=== PATIENT | female | born 1935 | race Caucasian/White ===

== ENCOUNTER 2018-12-25 13:22 | Inpatient (IN) ==
[2018-12-25 13:50] LABS: Basophils % 0.2 % (0.1-2.0); Eosinophils # 0.1 K/mm3 (0.0-0.4); Eosinophils % 0.8 % (0.1-12.0); Hematocrit 40.9 % (37.0-47.0); Hemoglobin 11.9 g/dL (12.2-16.2); Lymphocytes # 0.9 K/mm3 (0.7-4.5); Lymphocytes % 9.6 % (10-50); Mean Corpuscular Volume 94.6 fl (81-99); Mean Platelet Volume 8.1 fl (7.4-10.4); Monocytes # 0.9 K/mm3 (0.1-1.0); Monocytes % 10.2 % (1.7-9.3); Neutrophils % 79.2 % (37.0-80.0); Platelet Count 319 K/mm3 (142-424); Red Blood Count 4.33 M/mm3 (4.20-5.40); Red Cell Distribution Width 16.2 % (11.5-17.5); White Blood Count 8.9 K/mm3 (4.8-10.8)
--- NOTE | 2018-12-25 13:58 | Emergency Department Note ---
ED Disposition Clinical Impression: UTI (urinary tract infection) Qualifiers: Urinary tract infection type: site unspecified Hematuria presence: without hematuria Qualified Code(s): N39.0 - Urinary tract infection, site not specified Altered mental status Qualifiers: Altered mental status type: unspecified Qualified Code(s): R41.82 - Altered mental status, unspecified Atrial fibrillation Qualifiers: Atrial fibrillation type: paroxysmal Qualified Code(s): I48.0 - Paroxysmal atrial fibrillation Disposition: Admitted as Observation Condition on Discharge: Fair Referrals: Provider,Referral, [Primary Care Provider] - - Critical Care Critical Care Time: No Attestation: On 12/25/18, the high probability of a clinically significant, sudden or life threatening deterioration of the following system(s) required my full and direct attention, intervention and personal management. The time I documented below is in addition to time spent performing reported procedures but includes the following listed in this critical care notation. Medical Decision Making - Gustavo Inquiry Pt receiving controlled substance: No Vital Signs: 12/25/18 13:23 12/25/18 14:53 12/25/18 16:00 Temperature 98.3 F Temperature Source Oral Pulse Rate [Left Radial] 86 126 H 115 H Respiratory Rate 22 20 Blood Pressure [Right Arm] 91/56 L 98/70 L 112/54 L Blood Pressure Mean [Right Arm] 67 79 73 Blood Pressure Source [Right Arm] Automatic Cuff Automatic Cuff Automatic Cuff Blood Pressure Position [Right Arm] Supine Supine Supine 02 Sat by Pulse Oximetry 96 98 99 Oxygen Delivery Method Nasal Cannula Room Air Nasal Cannula Oxygen Flow Rate (LPM) 2 2 12/25/18 17:00 Temperature Temperature Source Pulse Rate [Left Radial] 122 H Respiratory Rate 24 Blood Pressure [Right Arm] 104/71 L Blood Pressure Mean [Right Arm] 82 Blood Pressure Source [Right Arm] Automatic Cuff Blood Pressure Position [Right Arm] Supine 02 Sat by Pulse Oximetry 94 L Oxygen Delivery Method Nasal Cannula Oxygen Flow Rate (LPM) 2 - Lab Data Lab Results 12/25/18 13:35: WBC 8.9, RBC 4.33, Hgb 11.9 L, Hct 40.9, MCV 94.6, MCH 27.5, MCHC 29.0 L, RDW 16.2, Plt Count 319, MPV 8.1, Neut % (Auto) 79.2, Lymph % (Auto) 9.6 L, [place] % (Auto) 10.2 H, Eos % (Auto) 0.8, Baso % (Auto) 0.2, Neut # (Auto) 7.0, Lymph # (Auto) 0.9, [place] # (Auto) 0.9, Eos # (Auto) 0.1, Baso # (Auto) 0.0 12/25/18 13:35: Sodium 140, Potassium 4.3, Chloride 105, Carbon Dioxide 30, Anion Gap 9.3, BUN 22 H, Creatinine 0.95, Estimated Creat Clear 45, Estimated GFR 56 L, Est GFR ( Amer) 68, Glucose 159 H, Calcium 8.2 L, Troponin I 0.04 12/25/18 13:35: Digoxin 1.03, Total Valproic Acid 23.6 L 12/25/18 13:35: B-Natriuretic Peptide 364 H 12/25/18 13:35: TSH 0.99, Free T4 Index 3.0 L, Thyroxine (T4) 7.7, T3 Uptake 39 12/25/18 14:10: Lactate 1.5 12/25/18 16:30: Urine Color Yellow, Urine Appearance Clear, Urine pH 6.0, Ur Specific [place] 1.010, Urine Protein Negative, Urine Glucose (UA) Negative, Urine Ketones Negative, Urine Blood Negative, Urine Nitrate Positive, Urine Bilirubin Negative, Urine Urobilinogen 0.2, Ur Leukocyte Esterase 2+ A, Urine WBC 50-100, Ur Squamous Epith Cells 3-5, Urine Bacteria 4+ Result diagrams: 12/25/18 13:35 12/25/18 13:35 Orders (Tests/Meds): ED MEDICATIONS Generic Name Dose Route Start Last Admin Trade Name Freq PRN Reason Stop Dose Admin Ceftriaxone Sodium 1 gm/ 50 mls @ 100 mls/hr 12/25/18 18:00 12/25/18 18:04 Sodium Chloride IV 01/08/19 17:59 100 mls/hr Q24H LATHA Administration Protocol Discontinued Medications Generic Name Dose Route Start Last Admin Trade Name Freq PRN Reason Stop Dose Admin Sodium Chloride 1,000 ml 12/25/18 14:04 12/25/18 14:35 Sod Chlor 0.9% 1000ml Bag IV 12/25/18 14:05 1,000 ml BOLUS ONE Administration ORDERS Category Date Time Status Blood Culture Stat Micro 12/25/18 14:10 Received Urine Culture Stat Micro 12/25/18 16:30 Received - Radiology Data #1 Image(s): Chest Image Reviewed: Yes I reviewed the patient's radiology image cardiomegaly, L pleural effusion - ECG Data Tracing #1 EKG interpreted by Anjel Cornelius MD: Rhythm: Atrial fibrillation with rapid response Rate: 115 Ectopy: none Conduction: Left bundle branch block, chronic - Physician Consults Physician Consulted: Christiano Time: 18:40 Reason -: Admission Comment/Response: Agrees to admit the patient to the hospital. We discussed the patient's clinical information, including history, exam, laboratory and radiology results and ED course. Per hospital procedure, I will write temporary bridge inpatient orders on the patient. Specific orders requested by the admitting physician: Continue Rocephin. No treatment for atrial fibrillation at this time. General Adult HPI - General Chief complaint: Weakness Stated complaint: AMS Time Seen by Provider: 12/25/18 13:57 Mode of Arrival: EMS Limitations: Physical Limitations Description of Symptoms (Recalled from ER Triage Doc. by RN): States patient has been declining for awhile now. Fell at [facility] on the and has since progressed to getting worse. PEG tube in place. Patient is nonverbal related to previous stroke. [facility] reports patient has a deep tissue area to right buttock and left heel. - History of Present Illness HPI narrative: The patient is nonverbal, unable to provide any history on her own. History is obtained from [facility] records. The patient reportedly fell at [facility] on 12/19/2018. Included in her documents are x- ray results from 12/19/2018, negative left hip and 12/20/2018, negative bilateral hips. She has reportedly had a decline in status since then. The patient is nonverbal, reportedly due to her previous stroke. 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 - Related Data Home Medications Medication Instructions Recorded Confirmed Apixaban [Eliquis] 5 mg G-TUBE BID 04/30/17 12/25/18 Atorvastatin Calcium [Lipitor 40mg 40 mg G-TUBE HS 04/30/17 12/25/18 Tablet] Cetirizine HCl [Zyrtec] 10 mg G-TUBE DAILY 04/30/17 12/25/18 Digoxin [Digoxin 0.125mg Tablet] 125 mcg G-TUBE DAILY 04/30/17 12/25/18 Donepezil HCl [Aricept 10mg 10 mg G-TUBE HS 04/30/17 12/25/18 tablet] Nebivolol HCl [Bystolic] 10 mg G-TUBE BID 04/30/17 12/25/18 Omeprazole Magnesium [Prilosec Otc 20 mg PO HS 04/30/17 12/25/18 20mg Tab] Valproic Acid 500 mg G-TUBE BID 04/30/17 12/25/18 Aspirin [Aspirin 325mg Tab] 325 mg PO DAILY 05/01/17 12/25/18 Allergies Allergy/AdvReac Type Severity Reaction Status Date / Time No Known Allergies Allergy Verified 04/30/17 20:48 [facility] History - Hepatitis A Screen Drug use history?: No High risk sexual behaviors?: No History of sexually transmitted infection?: No Currently employed?: No Childcare worker?: No Do you have indoor plumbing?: Yes Do you have electricity?: Yes Attestation statement:: This patient has been screened for Hepatitis A risk factors. I have reviewed the patient's past medical history: Yes Medical History: Reports:: Atrial Fibrillation, Cerebrovascular Accident, Dementia, Depression, Gastroesophageal Reflux Disease(GERD), Hyperlipidemia Denies:: Cancer, Diabetes Mellitus Type 1, Diabetes Mellitus Type 2, Internal Pacemaker, MRSA Other Surgeries: No: Pacemaker Amputation: No Fractures: No - Social History Educational Level: Completed High School Smoking Status: Unknown if ever smoked Alcohol Intake: never Occupational Status: unemployed, retired, disabled Housing: [facility] - Psychiatric History Pschychiatric History:: Reports:: Depression Family Hx:: Unable to obtain ROS Obtained: Yes unobtainable due to mental status, Yes unobtainable due to mental condition Physical Exam - General General appearance: other Comment: Laying with eyes closed. When stimulated she will open her eyes and mouth open. She does not follow commands or answer any questions. She will move all 4 extremities to stimulation. She will close her mouth to stimulation and face appears symmetric. - Head Head exam: atraumatic, normocephalic - Eye Eye exam: Present: normal appearance, PERRL, EOMI - ENT ENT exam: Present: mucous membranes dry - Neck Neck exam: Present: normal inspection, trachea midline - Chest Chest inspection: Present: normal inspection, symmetric chest wall rise - Respiratory Respiratory exam: Present: normal lung sounds bilaterally. Absent: respiratory distress - Cardiovascular Cardiovascular exam: Present: tachycardia, irregular rhythm, normal heart sounds - Abdominal Exam Abdominal exam: Present: soft. Absent: distention, guarding Comment: G-tube - Extremities Exam Extremities exam: Present: normal inspection - Neurological Exam Neurological exam: Present: other (responds to painful stimuli) - Skin Skin exam: Present: warm, dry
[2018-12-25 14:07] LABS: Calcium 8.2 mg/dL (8.5-10.1)
[2018-12-25 14:37] LABS: Anion Gap 9.3 mEq/L (5-15)
[2018-12-25 15:05] LABS: Digoxin 1.03 ng/mL (0.90-2.00)
[2018-12-25 16:40] LABS: Microscopic, Urine URINE MICROSCOPIC (MICROSCOPIC)
[2018-12-25 16:54] LABS: Appearance,Urine CLEAR (Clear); Bilirubin,Urine Negative (Negative); Blood, Urine Negative (Negative); Color,Urine YELLOW (Yellow); Glucose,Urine (UA) Negative (Negative); Ketones,Urine Negative (Negative); Leukocyte Esterase,Urine 2+ (Negative); Protein,Urine Negative (Negative); Urobilinogen,Urine 0.2 EU/dl (0.2)
[2018-12-25 17:38] LABS: Bacteria,Urine 4+ /lpf; WBC,Urine 50-100 #/hpf (0-3)
[2018-12-25 18:22] LABS: Thyroid Stimulating Hormone 0.99 uIU/ml (0.358-3.740)
--- NOTE | 2018-12-26 07:46 | Pharmacy Consult Notes ---
[facility] Pharmacy VTE Monitoring - Patient Demographics Admission date: 12/26/18 Report Date: 12/26/18 Time: 07:42 Allergies/Adverse Reactions: Patient Allergies No Known Allergies Allergy (Verified 04/30/17 20:48) Height: 1.68 m Weight: 71.781 kg Patient Problems: Current Active Problems Altered mental status, unspecified (Acute) UTI (urinary tract infection) (Acute) Atrial fibrillation (Acute) - VTE Risk Labs: VTE Related Lab Results Hgb 11.9 g/dL (12.2-16.2) L 12/25/18 13:35 Hct 40.9 % (37.0-47.0) 12/25/18 13:35 Plt Count 319 K/mm3 (142-424) 12/25/18 13:35 BUN 22 mg/dL (7-18) H 12/25/18 13:35 Creatinine 0.95 mg/dL (0.55-1.02) 12/25/18 13:35 Estimated Creat Clear 45 mL/min (50-200) 12/25/18 13:35 Was VTE Risk Assessment Performed: Yes VTE Risk Level: Low Risk Clinical Trial Participant: No - Prophylaxis VTE Prophylaxis Ordered?: Yes Types of VTE Prophylaxis: TEDS Knee High
--- NOTE | 2018-12-26 08:46 | History & Physical Report ---
*Admission Date: 12/26/18 *Chief complaint: weakness, falls at the halfway *History of present illness: Ms. Farmer is an 83-year-old female resident of [facility]. The patient is nonverbal and unable to provide any medical history. According to the ER note, the patient reportedly fell at [facility] on 12/19/2018. She had x-rays showing no fracture. She has had a decline in her function since that time. 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 She was sent to the emergency room for evaluation and found to have a urinary tract infection. She was admitted and started on IV antibiotics. [facility] History I have reviewed the patient's past medical history: Yes Medical History: Reports:: Atrial Fibrillation, Congestive Heart Failure, Cerebrovascular Accident, Dementia, Depression, Gastroesophageal Reflux Disease(GERD), Hyperlipidemia Denies:: Cancer, Diabetes Mellitus Type 1, Diabetes Mellitus Type 2, Internal Pacemaker, MRSA *Have you ever received a pneumonia vaccine?: No (Unknown) *Have you received a flu vaccine this season?: No (Unknown) Other Surgeries: No: Pacemaker Amputation: No Fractures: No - *Social History Educational Level: Completed High School Smoking Status: Unknown if ever smoked Alcohol Intake: never *Occupational Status:: unemployed, retired, disabled Housing: halfway *Travel in the last 8 weeks: None - Psychiatric History Pschychiatric History:: Reports:: Depression Family Hx:: Unable to obtain Review of Systems - Review of Systems Review of systems:: unable to obtain Meds Home Medications Medication Instructions Recorded Confirmed Type Apixaban [Eliquis] 5 mg G-TUBE BID 04/30/17 12/26/18 History Atorvastatin Calcium [Lipitor 40mg 40 mg G-TUBE HS 04/30/17 12/26/18 History Tablet] Cetirizine HCl [Zyrtec] 10 mg G-TUBE DAILY 04/30/17 12/26/18 History Digoxin [Digoxin 0.125mg Tablet] 125 mcg G-TUBE DAILY 04/30/17 12/26/18 History Donepezil HCl [Aricept 10mg 10 mg G-TUBE HS 04/30/17 12/26/18 History tablet] Nebivolol HCl [Bystolic] 10 mg G-TUBE BID 04/30/17 12/26/18 History Omeprazole Magnesium [Prilosec Otc 20 mg PO HS 04/30/17 12/26/18 History 20mg Tab] Valproic Acid 500 mg G-TUBE BID 04/30/17 12/26/18 History Aspirin [Aspirin 325mg Tab] 325 mg PO DAILY 05/01/17 12/26/18 History Benazepril HCl 10 mg PO DAILY 12/26/18 12/26/18 History Furosemide [Furosemide 20mg Tab] 20 mg PO BID 12/26/18 12/26/18 History Memantine HCl [Memantine 5mg 5 mg G-TUBE BID 12/26/18 12/26/18 History Tablet] Allergies Allergy/AdvReac Type Severity Reaction Status Date / Time No Known Allergies Allergy Verified 04/30/17 20:48 Exam Vital signs and Labs for Last 24 Hours: Temp Pulse Resp BP Pulse Ox 98.3 F 136 H 20 126/96 H 95 12/26/18 08:00 12/26/18 08:00 12/26/18 08:00 12/26/18 08:00 12/26/18 08:00 Laboratory Results - last 24 hr 12/25/18 13:35: WBC 8.9, RBC 4.33, Hgb 11.9 L, Hct 40.9, MCV 94.6, MCH 27.5, MCHC 29.0 L, RDW 16.2, Plt Count 319, MPV 8.1, Neut % (Auto) 79.2, Lymph % (Auto) 9.6 L, [place] % (Auto) 10.2 H, Eos % (Auto) 0.8, Baso % (Auto) 0.2, Neut # (Auto) 7.0, Lymph # (Auto) 0.9, [place] # (Auto) 0.9, Eos # (Auto) 0.1, Baso # (Auto) 0.0 12/25/18 13:35: Sodium 140, Potassium 4.3, Chloride 105, Carbon Dioxide 30, Anion Gap 9.3, BUN 22 H, Creatinine 0.95, Estimated Creat Clear 45, Estimated GFR 56 L, Est GFR ( Amer) 68, Glucose 159 H, Calcium 8.2 L, Troponin I 0.04 12/25/18 13:35: Digoxin 1.03, Total Valproic Acid 23.6 L 12/25/18 13:35: B-Natriuretic Peptide 364 H 12/25/18 13:35: TSH 0.99, Free T4 Index 3.0 L, Thyroxine (T4) 7.7, T3 Uptake 39 12/25/18 14:10: Lactate 1.5 12/25/18 16:30: Urine Color Yellow, Urine Appearance Clear, Urine pH 6.0, Ur Specific [place] 1.010, Urine Protein Negative, Urine Glucose (UA) Negative, Urine Ketones Negative, Urine Blood Negative, Urine Nitrate Positive, Urine Bilirubin Negative, Urine Urobilinogen 0.2, Ur Leukocyte Esterase 2+ A, Urine WBC 50-100, Ur Squamous Epith Cells 3-5, Urine Bacteria 4+ 12/26/18 02:17: POC Glucose 122 H I & O for Last 24 hours: Intake & Output 12/23/18 12/24/18 12/25/18 12/26/18 11:59 11:59 11:59 11:59 Output Total 400 / 400 Balance -400 / -400 Weight 158 lb 4 oz Microbiology Reports for the Last 24 Hours: Microbiology 12/25/18 16:30 Urine,Random Urine Culture - Preliminary Gram Negative Rods - Constitutional no acute distress Comments: Patient is nonverbal and sleeps through entire exam. - *Routine HEENT Exam Head: Present: normocephalic ENT: Present: mucous membranes dry - *Routine Neck Exam Present: supple. Absent: lymphadenopathy - *Routine Respiratory Exam Present: crackles (faint in the left base). Absent: wheezes - *Routine Cardiovascular Exam Present: irregularly irregular - *Routine Abdominal Exam Present: soft, normoactive bowel sounds. Absent: tenderness - *Routine Extremities Exam Present: edema (bilateral LE's (right worse than the left)). Absent: cyanosis, clubbing - *Routine Skin Exam Present: warm. Absent: rash - *Routine Neurological Exam Present: altered mental status H&P: Result - Impressions Head CT - No change with no acute intracranial findings CXR 1. Medium-sized left pleural effusion with cardiomegaly 2. Left thyroid enlargement/mass which does not appear significantly changed 3. Chronic changes right lower lobe Assessment and Plan (1) Altered mental status, unspecified Current visit: Yes Status: Acute Qualifiers: Altered mental status type: unspecified Qualified Code(s): R41.82 - Altered mental status, unspecified Category: Medical Code(s): R41.82 - Altered mental status, unspecified (2) Atrial fibrillation Current visit: Yes Status: Acute Qualifiers: Atrial fibrillation type: paroxysmal Qualified Code(s): I48.0 - Paroxysmal atrial fibrillation Category: Medical Code(s): I48.91 - Unspecified atrial fibrillation (3) UTI (urinary tract infection) Current visit: Yes Status: Acute Qualifiers: Urinary tract infection type: site unspecified Hematuria presence: without hematuria Qualified Code(s): N39.0 - Urinary tract infection, site not specified Category: Medical Code(s): N39.0 - Urinary tract infection, site not specified (4) Change in behavior Current visit: No Status: Acute Category: Medical Code(s): R46.89 - Other symptoms and signs involving appearance and behavior (5) History of stroke Current visit: No Status: Acute Category: Medical Code(s): Z86.73 - Personal history of transient ischemic attack (TIA), and cerebral infarction without residual deficits (6) Alzheimer disease Current visit: No Status: Chronic Qualifiers: Alzheimer's disease onset: unspecified onset Dementia behavioral disturbance: with behavioral disturbance Qualified Code(s): G30.9 - Alzheimer's disease, unspecified; F02.81 - Dementia in other diseases classified elsewhere with behavioral disturbance Category: Medical Code(s): G30.9 - Alzheimer's disease, unspecified; F02.80 - Dementia in other diseases classified elsewhere without behavioral disturbance (7) GERD (gastroesophageal reflux disease) Current visit: No Status: Chronic Category: Medical Code(s): K21.9 - Gastro-esophageal reflux disease without esophagitis - Assessment and plan all Dx Assessment and Plan for all problems:: Patient has been started on IV antibiotics. Will await urine culture results. Will likely need some Lasix due to pleural effusion on chest x-ray as well as lower extremity edema. Will discuss further care with Dr. Alvarado.
--- NOTE | 2018-12-27 09:08 | Progress Note ---
Internal Medicine - PN: Subj *Date: 12/27/18 *Time: 09:06 Interval history: Clinically she seems unchanged except for a temperature of 100.1 this morning. We need to recheck labs. Levaquin will be added to her antibiotic regimen. Exam Vital signs and Labs for Last 24 Hours: Temp Pulse Resp BP Pulse Ox 100.1 F H 140 H 22 141/104 H 95 12/27/18 08:00 12/27/18 08:21 12/27/18 08:00 12/27/18 08:00 12/27/18 08:00 I & O for Last 24 hours: Intake & Output 12/24/18 12/25/18 12/26/18 12/27/18 11:59 11:59 11:59 11:59 Intake Total 1594 / 1594 Output Total 400 / 400 825 / 825 Balance -400 / -400 769 / 769 Weight 158 lb 4 oz 164 lb Microbiology Reports for the Last 24 Hours: Microbiology 12/25/18 16:30 Urine,Random Urine Culture - Final Escherichia coli - Constitutional no acute distress (No more responsive) - *Routine HEENT Exam Eye: Present: PERRL ENT: Present: mucous membranes moist - *Routine Respiratory Exam Present: CTA bilaterally. Absent: respiratory distress - *Routine Cardiovascular Exam Present: irregular rhythm (120) - *Routine Abdominal Exam Present: soft. Absent: tenderness - *Routine Extremities Exam Present: edema (2+) - *Routine Neurological Exam No change. Assessment and Plan (1) Altered mental status, unspecified Current visit: Yes Status: Acute Qualifiers: Altered mental status type: unspecified Qualified Code(s): R41.82 - Altered mental status, unspecified Category: Medical Code(s): R41.82 - Altered mental status, unspecified (2) Atrial fibrillation Current visit: Yes Status: Acute Qualifiers: Atrial fibrillation type: paroxysmal Qualified Code(s): I48.0 - Paroxysmal atrial fibrillation Category: Medical Code(s): I48.91 - Unspecified atrial fibrillation (3) UTI (urinary tract infection) Current visit: Yes Status: Acute Qualifiers: Urinary tract infection type: site unspecified Hematuria presence: without hematuria Qualified Code(s): N39.0 - Urinary tract infection, site not specified Category: Medical Code(s): N39.0 - Urinary tract infection, site not specified (4) Change in behavior Current visit: No Status: Acute Category: Medical Code(s): R46.89 - Other symptoms and signs involving appearance and behavior (5) History of stroke Current visit: No Status: Acute Category: Medical Code(s): Z86.73 - Personal history of transient ischemic attack (TIA), and cerebral infarction without residual deficits (6) Alzheimer disease Current visit: No Status: Chronic Qualifiers: Alzheimer's disease onset: unspecified onset Dementia behavioral disturbance: with behavioral disturbance Qualified Code(s): G30.9 - Alzheimer's disease, unspecified; F02.81 - Dementia in other diseases classified elsewhere with behavioral disturbance Category: Medical Code(s): G30.9 - Alzheimer's disease, unspecified; F02.80 - Dementia in other diseases classified elsewhere without behavioral disturbance (7) GERD (gastroesophageal reflux disease) Current visit: No Status: Chronic Category: Medical Code(s): K21.9 - Gastro-esophageal reflux disease without esophagitis - Assessment and plan all Dx Assessment and Plan for all problems:: Add Levaquin. Check labs. Culture showed E. coli in the urine with wide sensitivities. Blood cultures have not been positive.
[2018-12-27 10:01] LABS: Basophils % 0.3 % (0.1-2.0); Eosinophils # 0.1 K/mm3 (0.0-0.4); Eosinophils % 1.7 % (0.1-12.0); Hemoglobin 10.5 g/dL (12.2-16.2); Lymphocytes # 1.2 K/mm3 (0.7-4.5); Lymphocytes % 14.3 % (10-50); Mean Platelet Volume 7.8 fl (7.4-10.4); Monocytes # 0.9 K/mm3 (0.1-1.0); Monocytes % 10.4 % (1.7-9.3); Neutrophils # 6.1 K/mm3 (1.8-7.8); Neutrophils % 73.3 % (37.0-80.0); Platelet Count 309 K/mm3 (142-424); Red Blood Count 3.77 M/mm3 (4.20-5.40); Red Cell Distribution Width 16.1 % (11.5-17.5); White Blood Count 8.3 K/mm3 (4.8-10.8)
[2018-12-27 10:13] LABS: Anion Gap 9.3 mEq/L (5-15); Calcium 7.9 mg/dL (8.5-10.1)
--- NOTE | 2018-12-27 12:16 | Electrocardiograph Report ---
APPROVED REPORT Exam: Resting ECG HR:115 bpm ECG Measurements Heart Rate 115 AXES QRSd 124 QRS -28 QT 308 T207 QTc 426 <Conclusion> Suspect Atrial Fibrillation Left bundle branch block Abnormal ECG Electronically signed by : Ritchie Meyer, 12/27/2018 12:15:34
--- NOTE | 2018-12-28 09:03 | Progress Note ---
Internal Medicine - PN: Subj *Date: 12/28/18 *Time: 09:01 Interval history: No new problems noted by staff. She remains nonverbal. Exam Vital signs and Labs for Last 24 Hours: Temp Pulse Resp BP Pulse Ox 98.0 F 124 H 20 110/74 96 12/28/18 07:36 12/28/18 08:57 12/28/18 07:36 12/28/18 07:36 12/28/18 07:36 Laboratory Results - last 24 hr 12/27/18 09:30: WBC 8.3, RBC 3.77 L, Hgb 10.5 L, Hct 35.0 L, MCV 93.0, MCH 27.9, MCHC 30.0 L, RDW 16.1, Plt Count 309, MPV 7.8, Neut % (Auto) 73.3, Lymph % (Auto) 14.3, [place] % (Auto) 10.4 H, Eos % (Auto) 1.7, Baso % (Auto) 0.3, Neut # (Auto) 6.1, Lymph # (Auto) 1.2, [place] # (Auto) 0.9, Eos # (Auto) 0.1, Baso # (Auto) 0.0 12/27/18 09:30: Sodium 140, Potassium 4.3, Chloride 106, Carbon Dioxide 29, Anion Gap 9.3, BUN 21 H, Creatinine 0.71 D, Estimated Creat Clear 48, Estimated GFR 78, Est GFR ( Amer) 95 D, Glucose 135 H, Calcium 7.9 L I & O for Last 24 hours: Intake & Output 12/25/18 12/26/18 12/27/18 12/28/18 11:59 11:59 11:59 11:59 Intake Total 1694 / 1694 1497 / 1497 Output Total 400 / 400 825 / 825 1800 / 1800 Balance -400 / -400 869 / 869 -303 / -303 Weight 158 lb 4 oz 164 lb 158 lb 7 oz Microbiology Reports for the Last 24 Hours: Microbiology 12/25/18 14:10 Blood Blood Culture - Preliminary NO GROWTH AFTER 48 HOURS 12/25/18 14:10 Blood Blood Culture - Preliminary NO GROWTH AFTER 48 HOURS 12/25/18 16:30 Urine,Random Urine Culture - Final Escherichia coli Narrative: She is alert. Color is normal. She does not respond to questions. Lungs are clear. Heart is irregularly irregular. Abdomen is soft and nondistended. She moans slightly with palpation of the lower abdomen. Assessment and Plan (1) Altered mental status, unspecified Current visit: Yes Status: Acute Qualifiers: Altered mental status type: unspecified Qualified Code(s): R41.82 - Altered mental status, unspecified Category: Medical Code(s): R41.82 - Altered mental status, unspecified (2) Atrial fibrillation Current visit: Yes Status: Acute Qualifiers: Atrial fibrillation type: paroxysmal Qualified Code(s): I48.0 - Paroxysmal atrial fibrillation Category: Medical Code(s): I48.91 - Unspecified atrial fibrillation (3) UTI (urinary tract infection) Current visit: Yes Status: Acute Qualifiers: Urinary tract infection type: site unspecified Hematuria presence: without hematuria Qualified Code(s): N39.0 - Urinary tract infection, site not specified Category: Medical Code(s): N39.0 - Urinary tract infection, site not specified (4) Change in behavior Current visit: No Status: Acute Category: Medical Code(s): R46.89 - Other symptoms and signs involving appearance and behavior (5) History of stroke Current visit: No Status: Acute Category: Medical Code(s): Z86.73 - Personal history of transient ischemic attack (TIA), and cerebral infarction without residual deficits (6) Alzheimer disease Current visit: No Status: Chronic Qualifiers: Alzheimer's disease onset: unspecified onset Dementia behavioral disturbance: with behavioral disturbance Qualified Code(s): G30.9 - Alzheimer's disease, unspecified; F02.81 - Dementia in other diseases classified elsewhere with behavioral disturbance Category: Medical Code(s): G30.9 - Alzheimer's disease, unspecified; F02.80 - Dementia in other diseases classified elsewhere without behavioral disturbance (7) GERD (gastroesophageal reflux disease) Current visit: No Status: Chronic Category: Medical Code(s): K21.9 - Gastro-esophageal reflux disease without esophagitis - Assessment and plan all Dx Assessment and Plan for all problems:: Urine culture shows E. coli which is sensitive to the Rocephin. She will be continued on Rocephin.
[2018-12-29 08:27] LABS: Basophils % 0.1 % (0.1-2.0); Eosinophils # 0.1 K/mm3 (0.0-0.4); Eosinophils % 1.4 % (0.1-12.0); Hematocrit 39.2 % (37.0-47.0); Hemoglobin 11.9 g/dL (12.2-16.2); Lymphocytes # 1.3 K/mm3 (0.7-4.5); Lymphocytes % 13.6 % (10-50); Mean Corpuscular HGB Conc 30.2 g/dL (31.8-35.4); Mean Corpuscular Volume 91.7 fl (81-99); Mean Platelet Volume 7.9 fl (7.4-10.4); Monocytes # 0.9 K/mm3 (0.1-1.0); Monocytes % 9.8 % (1.7-9.3); Neutrophils # 6.9 K/mm3 (1.8-7.8); Neutrophils % 75.1 % (37.0-80.0); Platelet Count 313 K/mm3 (142-424); Red Blood Count 4.28 M/mm3 (4.20-5.40); White Blood Count 9.1 K/mm3 (4.8-10.8)
[2018-12-29 08:32] LABS: Anion Gap 10.4 mEq/L (5-15)
[2018-12-29 08:49] LABS: Calcium 8.5 mg/dL (8.5-10.1)
--- NOTE | 2018-12-29 08:54 | Progress Note ---
Internal Medicine - PN: Subj *Date: 12/29/18 *Time: 09:26 Interval history: No new concerns reported by staff this morning. She had a low-grade fever of 100.5 last evening. Exam Vital signs and Labs for Last 24 Hours: Temp Pulse Resp BP Pulse Ox 99.2 F 106 H 17 138/68 94 L 12/29/18 07:41 12/29/18 08:34 12/29/18 07:41 12/29/18 07:41 12/29/18 07:41 Laboratory Results - last 24 hr 12/29/18 07:58: WBC 9.1, RBC 4.28, Hgb 11.9 L, Hct 39.2, MCV 91.7, MCH 27.7, MCHC 30.2 L, RDW 16.0, Plt Count 313, MPV 7.9, Neut % (Auto) 75.1, Lymph % (Auto) 13.6, [place] % (Auto) 9.8 H, Eos % (Auto) 1.4, Baso % (Auto) 0.1, Neut # (Auto) 6.9, Lymph # (Auto) 1.3, [place] # (Auto) 0.9, Eos # (Auto) 0.1, Baso # (Auto) 0.0 12/29/18 07:58: Sodium 141, Potassium 4.4, Chloride 105, Carbon Dioxide 30, Anion Gap 10.4, BUN 19 H, Creatinine 0.67, Estimated Creat Clear 48, Estimated GFR 84, Est GFR ( Amer) 101, Glucose 120 H, Calcium 8.5 I & O for Last 24 hours: Intake & Output 12/26/18 12/27/18 12/28/18 12/29/18 11:59 11:59 11:59 11:59 Intake Total 1694 / 1694 1597 / 1597 330 / 330 Output Total 400 / 400 825 / 825 1800 / 1800 1725 / 1725 Balance -400 / -400 869 / 869 -203 / -203 -1395 / -1395 Weight 158 lb 4 oz 164 lb 158 lb 7 oz 161 lb 5 oz Narrative: She remains nonverbal. She appears in no distress. Color is normal. Respirations even and unlabored. Lungs are clear to auscultation. Heart is irregularly irregular. Abdomen soft and nondistended with no apparent tenderness. Assessment and Plan (1) Altered mental status, unspecified Current visit: Yes Status: Acute Qualifiers: Altered mental status type: unspecified Qualified Code(s): R41.82 - Altered mental status, unspecified Category: Medical Code(s): R41.82 - Altered mental status, unspecified (2) Atrial fibrillation Current visit: Yes Status: Acute Qualifiers: Atrial fibrillation type: paroxysmal Qualified Code(s): I48.0 - Paroxysmal atrial fibrillation Category: Medical Code(s): I48.91 - Unspecified atrial fibrillation (3) UTI (urinary tract infection) Current visit: Yes Status: Acute Qualifiers: Urinary tract infection type: site unspecified Hematuria presence: without hematuria Qualified Code(s): N39.0 - Urinary tract infection, site not specified Category: Medical Code(s): N39.0 - Urinary tract infection, site not specified (4) Change in behavior Current visit: No Status: Acute Category: Medical Code(s): R46.89 - Other symptoms and signs involving appearance and behavior (5) History of stroke Current visit: No Status: Acute Category: Medical Code(s): Z86.73 - Personal history of transient ischemic attack (TIA), and cerebral infarction without residual deficits (6) Alzheimer disease Current visit: No Status: Chronic Qualifiers: Alzheimer's disease onset: unspecified onset Dementia behavioral disturbance: with behavioral disturbance Qualified Code(s): G30.9 - Alzheimer's disease, unspecified; F02.81 - Dementia in other diseases classified elsewhere with behavioral disturbance Category: Medical Code(s): G30.9 - Alzheimer's disease, unspecified; F02.80 - Dementia in other diseases classified elsewhere without behavioral disturbance (7) GERD (gastroesophageal reflux disease) Current visit: No Status: Chronic Category: Medical Code(s): K21.9 - Gastro-esophageal reflux disease without esophagitis - Assessment and plan all Dx Assessment and Plan for all problems:: Continue current care.
--- NOTE | 2018-12-29 10:37 | Progress Note ---
Internal Medicine - PN: Subj *Date: 12/29/18 *Time: 10:36 Exam Vital signs and Labs for Last 24 Hours: Temp Pulse Resp BP Pulse Ox 99.2 F 106 H 17 138/68 94 L 12/29/18 07:41 12/29/18 08:34 12/29/18 07:41 12/29/18 07:41 12/29/18 07:41 Laboratory Results - last 24 hr 12/29/18 07:58: WBC 9.1, RBC 4.28, Hgb 11.9 L, Hct 39.2, MCV 91.7, MCH 27.7, MCHC 30.2 L, RDW 16.0, Plt Count 313, MPV 7.9, Neut % (Auto) 75.1, Lymph % (Auto) 13.6, [place] % (Auto) 9.8 H, Eos % (Auto) 1.4, Baso % (Auto) 0.1, Neut # (Auto) 6.9, Lymph # (Auto) 1.3, [place] # (Auto) 0.9, Eos # (Auto) 0.1, Baso # (Auto) 0.0 12/29/18 07:58: Sodium 141, Potassium 4.4, Chloride 105, Carbon Dioxide 30, Anion Gap 10.4, BUN 19 H, Creatinine 0.67, Estimated Creat Clear 48, Estimated GFR 84, Est GFR ( Amer) 101, Glucose 120 H, Calcium 8.5 I & O for Last 24 hours: Intake & Output 12/26/18 12/27/18 12/28/18 12/29/18 23:59 23:59 23:59 23:59 Intake Total 1037 / 1037 757 / 757 1707 / 1707 120 / 120 Output Total 750 / 1225 1775 / 1775 1125 / 1125 1100 / 1100 Balance 287 / -188 -1018 / -1018 582 / 582 -980 / -980 Weight 71.781 kg 74.389 kg 71.866 kg 73.17 kg Assessment and Plan (1) Altered mental status, unspecified Current visit: Yes Status: Acute Qualifiers: Altered mental status type: unspecified Qualified Code(s): R41.82 - Altered mental status, unspecified Category: Medical Code(s): R41.82 - Altered mental status, unspecified (2) Atrial fibrillation Current visit: Yes Status: Acute Qualifiers: Atrial fibrillation type: paroxysmal Qualified Code(s): I48.0 - Paroxysmal atrial fibrillation Category: Medical Code(s): I48.91 - Unspecified atrial fibrillation (3) UTI (urinary tract infection) Current visit: Yes Status: Acute Qualifiers: Urinary tract infection type: site unspecified Hematuria presence: without hematuria Qualified Code(s): N39.0 - Urinary tract infection, site not specified Category: Medical Code(s): N39.0 - Urinary tract infection, site not specified (4) Change in behavior Current visit: No Status: Acute Category: Medical Code(s): R46.89 - Other symptoms and signs involving appearance and behavior (5) History of stroke Current visit: No Status: Acute Category: Medical Code(s): Z86.73 - Personal history of transient ischemic attack (TIA), and cerebral infarction without residual deficits (6) Alzheimer disease Current visit: No Status: Chronic Qualifiers: Alzheimer's disease onset: unspecified onset Dementia behavioral disturbance: with behavioral disturbance Qualified Code(s): G30.9 - Alzheimer's disease, unspecified; F02.81 - Dementia in other diseases classified elsewhere with behavioral disturbance Category: Medical Code(s): G30.9 - Alzheimer's disease, unspecified; F02.80 - Dementia in other diseases classified elsewhere without behavioral disturbance (7) GERD (gastroesophageal reflux disease) Current visit: No Status: Chronic Category: Medical Code(s): K21.9 - Gastro-esophageal reflux disease without esophagitis The patient's infection will respond to the chosen ABx?: Yes Is the patient receiving the right drug, dose, and route?: Yes Could a more targeted ABx be ordered?: No (E COLI SENSITIVE TO ROCEPHIN)
--- NOTE | 2018-12-30 09:08 | Progress Note ---
Internal Medicine - PN: Subj *Date: 12/30/18 *Time: 09:05 Interval history: The patient has remained stable through the weekend. She is ready for discharge. She does have some increased leg edema today. I will give Lasix 20 mg IV. The only changes in the mid list are with carvedilol instead of by systolic, the addition of Sinemet 3 times daily, and 5 more days of cefdinir for the urinary tract infection with E. coli. Exam Vital signs and Labs for Last 24 Hours: Temp Pulse Resp BP Pulse Ox 98.0 F 130 H 18 144/75 H 94 L 12/30/18 04:00 12/30/18 04:00 12/30/18 04:00 12/30/18 04:00 12/30/18 04:00 I & O for Last 24 hours: Intake & Output 12/27/18 12/28/18 12/29/18 12/30/18 11:59 11:59 11:59 11:59 Intake Total 1694 / 1694 1597 / 1597 330 / 330 567 / 567 Output Total 825 / 825 1800 / 1800 1725 / 1725 450 / 450 Balance 869 / 869 -203 / -203 -1395 / -1395 117 / 117 Weight 164 lb 158 lb 7 oz 161 lb 5 oz 160 lb 3 oz - Constitutional no acute distress - *Routine HEENT Exam Head: Present: normocephalic Eye: Present: PERRL - *Routine Respiratory Exam Present: CTA bilaterally. Absent: respiratory distress - *Routine Cardiovascular Exam Present: tachycardia (120) - *Routine Abdominal Exam Present: soft. Absent: tenderness - *Routine Extremities Exam Present: edema (2+) - *Routine Neurological Exam Present: tremors (Left hand tremor persists. No change in neurologic status.) Assessment and Plan (1) UTI (urinary tract infection) Current visit: Yes Status: Acute Qualifiers: Urinary tract infection type: site unspecified Hematuria presence: without hematuria Qualified Code(s): N39.0 - Urinary tract infection, site not specified Category: Medical Code(s): N39.0 - Urinary tract infection, site not specified (2) Sepsis Current visit: Yes Status: Acute Category: Medical Code(s): A41.9 - Sepsis, unspecified organism (3) Atrial fibrillation Current visit: Yes Status: Acute Qualifiers: Atrial fibrillation type: paroxysmal Qualified Code(s): I48.0 - Paroxysmal atrial fibrillation Category: Medical Code(s): I48.91 - Unspecified atrial fibrillation (4) Altered mental status, unspecified Current visit: Yes Status: Acute Qualifiers: Altered mental status type: unspecified Qualified Code(s): R41.82 - Altered mental status, unspecified Category: Medical Code(s): R41.82 - Altered mental status, unspecified (5) Change in behavior Current visit: No Status: Acute Category: Medical Code(s): R46.89 - Other symptoms and signs involving appearance and behavior (6) History of stroke Current visit: No Status: Acute Category: Medical Code(s): Z86.73 - Personal history of transient ischemic attack (TIA), and cerebral infarction without residual deficits (7) Alzheimer disease Current visit: No Status: Chronic Qualifiers: Alzheimer's disease onset: unspecified onset Dementia behavioral disturbance: with behavioral disturbance Qualified Code(s): G30.9 - Alzheimer's disease, unspecified; F02.81 - Dementia in other diseases classified elsewhere with behavioral disturbance Category: Medical Code(s): G30.9 - Alzheimer's disease, unspecified; F02.80 - Dementia in other diseases classified elsewhere without behavioral disturbance (8) GERD (gastroesophageal reflux disease) Current visit: No Status: Chronic Category: Medical Code(s): K21.9 - Gastro-esophageal reflux disease without esophagitis (9) Parkinsons disease Current visit: Yes Status: Acute Category: Medical Code(s): G20 - Parkinson's disease - Assessment and plan all Dx Assessment and Plan for all problems:: Discharge to [facility]. Medication changes as described.
--- NOTE | 2018-12-30 12:42 | Discharge Summary ---
General - General Admission date:: 12/27/18 Discharge date: 12/30/18 HPI HPI: Ms. Farmer is an 83-year-old female resident of [facility]. The patient was noted to be nonverbal and unable to provide any medical history. According to the ER note, the patient reportedly fell at [facility] on 12/19/2018. She had x-rays showing no fracture. She experienced a decline in her functioning since that time. 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 She was sent to the emergency room for evaluation and found to have a urinary tract infection. She was admitted and started on IV antibiotics. Hospital Course Hospital Course: On admission patient was started on Rocephin for her urinary tract infection. Urine culture eventually grew out E. coli. Levaquin was added. She did run a low-grade fever for several mornings of 100.1 and 100.5. She continued on with Ensure tube feedings. She did have some Parkinson symptoms and was started on Sinemet. She had Lasix IV for pleural effusion and leg edema. Patient continued to be nonverbal throughout her stay and was felt to be at her baseline. On 12/30/2018 she was stable and felt ready to be discharged back to [facility]. Condition at discharge was stable and satisfactory. She will continue with Omnicef for 5 additional days. She will also be continued with carvedilol and Sinemet. She will be followed by the physician [facility] Objective Vital signs: Temp Pulse Resp BP Pulse Ox 98.8 F 121 H 16 112/56 L 94 L 12/30/18 08:00 12/30/18 10:01 12/30/18 08:00 12/30/18 08:00 12/30/18 08:00 Narrative: Exam Vital signs and Labs for Last 24 Hours: Temp Pulse Resp BP Pulse Ox 98.0 F 130 H 18 144/75 H 94 L 12/30/18 04:00 12/30/18 04:00 12/30/18 04:00 12/30/18 04:00 12/30/18 04:00 I & O for Last 24 hours: Intake & Output 12/27/18 12/28/18 12/29/18 12/30/18 11:59 11:59 11:59 11:59 Intake Total 1694 / 1694 1597 / 1597 330 / 330 567 / 567 Output Total 825 / 825 1800 / 1800 1725 / 1725 450 / 450 Balance 869 / 869 -203 / -203 -1395 / -1395 117 / 117 Weight 164 lb 158 lb 7 oz 161 lb 5 oz 160 lb 3 oz - Constitutional no acute distress - *Routine HEENT Exam Head: Present: normocephalic Eye: Present: PERRL - *Routine Respiratory Exam Present: CTA bilaterally. Absent: respiratory distress - *Routine Cardiovascular Exam Present: tachycardia (120) - *Routine Abdominal Exam Present: soft. Absent: tenderness - *Routine Extremities Exam Present: edema (2+) - *Routine Neurological Exam Present: tremors (Left hand tremor persists. No change in neurologic status.) Results Completed studies during hospitalization [Text1]: Laboratory Tests 12/25/18 12/25/18 12/25/18 13:35 13:35 13:35 WBC RBC Hgb Hct MCV MCH Plt Count Neut % (Auto) Lymph % (Auto) [place] % (Auto) Sodium Potassium Chloride Carbon Dioxide Anion Gap BUN Creatinine Estimated Creat Clear Estimated GFR Glucose Lactate Calcium B-Natriuretic Peptide 364 H TSH 0.99 Digoxin 1.03 Total Valproic Acid 23.6 L 12/25/18 12/29/18 12/29/18 14:10 07:58 07:58 WBC 9.1 RBC 4.28 Hgb 11.9 L Hct 39.2 MCV 91.7 MCH 27.7 Plt Count 313 Neut % (Auto) 75.1 Lymph % (Auto) 13.6 [place] % (Auto) 9.8 H Sodium 141 Potassium 4.4 Chloride 105 Carbon Dioxide 30 Anion Gap 10.4 BUN 19 H Creatinine 0.67 Estimated Creat Clear 48 Estimated GFR 84 Glucose 120 H Lactate 1.5 Calcium 8.5 B-Natriuretic Peptide TSH Digoxin Total Valproic Acid 12/25/2018 CT of the head IMPRESSION: No change with no acute intracranial findings 12/25/2018 chest x-ray IMPRESSION: 1. Medium-sized left pleural effusion with cardiomegaly 2. Left thyroid enlargement/mass which does not appear significantly changed 3. Chronic changes right lower lobe Labs on day of discharge: Preliminary micro results at discharge 12/25/18 14:10 Blood Culture - Preliminary Blood NO GROWTH AFTER 48 HOURS 12/25/18 14:10 Blood Culture - Preliminary Blood NO GROWTH AFTER 48 HOURS DS: Diagnosis - Discharge Diagnosis (1) UTI (urinary tract infection) Status: Acute (2) Sepsis Status: Acute (3) Atrial fibrillation Status: Acute (4) Altered mental status, unspecified Status: Acute (5) Change in behavior Status: Acute (6) History of stroke Status: Acute (7) Alzheimer disease Status: Chronic (8) GERD (gastroesophageal reflux disease) Status: Chronic (9) Parkinsons disease Status: Acute (10) E. coli urinary tract infection Status: Acute Discharge Plan - Patient Discharge Instructions ACTIVITY: Continue current activity DIET: continue same diet Patient Instructions: Urinary Tract Infection, Atrial Fibrillation, Escherichia coli Infection, Delirium, DI for Atrial Flutter, DI for Urinary Tract Infection (UTI) - Follow up Plan Disposition: [facility] Home Medications: Home Medications Medication Instructions Recorded Confirmed Type Apixaban [Eliquis] 5 mg G-TUBE BID 04/30/17 12/26/18 History Atorvastatin Calcium [Lipitor 40mg 40 mg G-TUBE HS 04/30/17 12/26/18 History Tablet] Digoxin [Digoxin 0.125mg Tablet] 125 mcg G-TUBE DAILY 04/30/17 12/26/18 History Donepezil HCl [Aricept 10mg 10 mg G-TUBE HS 04/30/17 12/26/18 History tablet] Omeprazole Magnesium [Prilosec Otc 20 mg PO HS 04/30/17 12/26/18 History 20mg Tab] Valproic Acid 500 mg G-TUBE BID 04/30/17 12/26/18 History Aspirin [Aspirin 325mg Tab] 325 mg PO DAILY 05/01/17 12/26/18 History Acetaminophen [Acetaminophen 325mg 650 mg PO Q6HP PRN 12/26/18 12/26/18 History tab] Ascorbic Acid [Vitamin C 500mg 500 mg G-TUBE BID 12/26/18 12/26/18 History tablet] Benazepril HCl 10 mg PO DAILY 12/26/18 12/26/18 History Cholecalciferol (Vitamin D3) 50,000 unit G-TUBE QOW 12/26/18 12/26/18 History [Vitamin D3 50,000 unit Cap] Furosemide [Furosemide 20mg Tab] 20 mg PO BID 12/26/18 12/26/18 History Loperamide HCl [Loperamide HCl 2 mg G-TUBE Q4HP PRN 12/26/18 12/26/18 History 1mg/5mL Udc] Memantine HCl [Memantine 5mg 5 mg G-TUBE BID 12/26/18 12/26/18 History Tablet] Multivitamin [Multivitamins] 1 each G-TUBE DAILY 12/26/18 12/26/18 History Paliperidone Palmitate [Invega 234 mg IM MONTHLY 12/26/18 12/26/18 History Sustenna] Polyethylene Glycol 3350 [Miralax 17 gm PO QODHS 12/26/18 12/26/18 History 17gm Packet] Zinc Sulfate [Zinc Sulfate 220mg 220 mg G-TUBE DAILY 12/26/18 12/26/18 History capsule] guaiFENesin [Cough Syrup] 200 mg PO Q6HP PRN 12/26/18 12/26/18 History Carbidopa/Levodopa [Sinemet 1 each PO TID #90 tab 12/30/18 Rx 10/100mg tablet] Carvedilol [Coreg 12.5mg 12.5 mg FEED TUBE BID #60 tab 12/30/18 Rx Tablet] Cefdinir [Omnicef 300mg Capsule] 300 mg PO BID #10 cap 12/30/18 Rx Prescriptions/Medication Reconciliation: New Carvedilol [Coreg 12.5mg Tablet] 12.5 mg FEED TUBE BID #60 tab Carbidopa/Levodopa [Sinemet 10/100mg tablet] 1 each PO TID #90 tab Cefdinir [Omnicef 300mg Capsule] 300 mg PO BID #10 cap Continued Omeprazole Magnesium [Prilosec Otc 20mg Tab] 20 mg PO HS Valproic Acid 500 mg G-TUBE BID Digoxin [Digoxin 0.125mg Tablet] 125 mcg G-TUBE DAILY Atorvastatin Calcium [Lipitor 40mg Tablet] 40 mg G-TUBE HS Apixaban [Eliquis] 5 mg G-TUBE BID Memantine HCl [Memantine 5mg Tablet] 5 mg G-TUBE BID Benazepril HCl 10 mg PO DAILY Acetaminophen [Acetaminophen 325mg tab] 650 mg PO Q6HP PRN PRN Reason: As Needed For Fever Or Pain Multivitamin [Multivitamins] 1 each G-TUBE DAILY Zinc Sulfate [Zinc Sulfate 220mg capsule] 220 mg G-TUBE DAILY Ascorbic Acid [Vitamin C 500mg tablet] 500 mg G-TUBE BID Cholecalciferol (Vitamin D3) [Vitamin D3 50,000 unit Cap] 50,000 unit G-TUBE QOW Paliperidone Palmitate [Invega Sustenna] 234 mg IM MONTHLY guaiFENesin [Cough Syrup] 200 mg PO Q6HP PRN PRN Reason: Cough Donepezil HCl [Aricept 10mg tablet] 10 mg G-TUBE HS Aspirin [Aspirin 325mg Tab] 325 mg PO DAILY Furosemide [Furosemide 20mg Tab] 20 mg PO BID Loperamide HCl [Loperamide HCl 1mg/5mL Udc] 2 mg G-TUBE Q4HP PRN PRN Reason: LOOSE STOOL Polyethylene Glycol 3350 [Miralax 17gm Packet] 17 gm PO QODHS Discontinued Nebivolol HCl [Bystolic] 10 mg G-TUBE BID Cetirizine HCl [Zyrtec] 5 mg G-TUBE DAILY - Problem Reconciliation Problems Reviewed?: Yes
== END 2018-12-30 14:54 | DRG 690 ==
LOC: ER 13:22 → 2ND 19:13 → INTOOBSV 20:30 → 2ND 20:30
PROVIDERS: ADMIT Family Medicine; ATTEND Family Medicine
CPT/HCPCS: 36415; 70450; 71010; 71045; 80048; 80162; 80164; 81001; 82565; 82962; 83605; 83880; 84436; 84443; 84479; 84484; 84520; 85025; 87040; 87086; 87088; 87186; 93005; 96365; 99285; G0378; J1956